=== PATIENT | male | born 1980 ===

== ENCOUNTER 2024-09-05 08:49 | Outpatient (CLI) | payer OTHER | END 2024-09-05 08:50 | disposition home or self-care (01) | LOC: BICMRI 08:49 | PROVIDERS: ATTEND Family Medicine | DX: M25.561 Pain in right knee (principal); M25.562 Pain in left knee; M24.812 Other specific joint derangements of left shoulder, not elsewhere classified; R93.7 Abnormal findings on diagnostic imaging of other parts of musculoskeletal system; M17.11 Unilateral primary osteoarthritis, right knee ==